=== PATIENT | male | born 1980 | race Caucasian/White ===

== ENCOUNTER → 2024-04-07 06:25 | Day surgery (SDC) | payer OTHER, SELFPAY | LOC: GI 06:25 | PROVIDERS: ATTENDING PHYSICIAN Internal Medicine Gastroenterology | DX: K64.8 Other hemorrhoids (principal); K92.1 Melena; K57.30 Diverticulosis of large intestine without perforation or abscess without bleeding; Z80.0 Family history of malignant neoplasm of digestive organs | CPT/HCPCS: 45380; 88305 ==